=== PATIENT | female | born 1975 | race Two or more races ===

== ENCOUNTER → 2024-02-17 | Outpatient (CLI) | payer OTHER, SELFPAY ==
--- NOTE | 2024-02-17 | XR_ITS ---
Examination: PA lateral chest 2 views TECHNIQUE: Upright PA lateral chest 2 views Exam date and time: February 17, 2024 0803 hours Comparison February 10, 2018 INDICATIONS: Shortness of breath coughing beginning 3 months ago FINDINGS: Right base right middle lobe pneumonia Left lung clear Normal heart size IMPRESSION: Right middle lobe right base pneumonia
== END | disposition home or self-care (01) ==
LOC: CDIM 07:50
PROVIDERS: Referring Provider Nurse Practitioner Family; Visit Provider Nurse Practitioner Family
DX: J18.9 Pneumonia, unspecified organism (principal)
CPT/HCPCS: 71046

== ENCOUNTER → 2024-03-13 | Outpatient (CLI) | payer OTHER, SELFPAY ==
--- NOTE | 2024-03-13 | XR_ITS ---
Examination: Right knee 4 views TECHNIQUE: AP oblique lateral axial right knee 4 views Exam date and time: March 13, 2024 12:24 PM INDICATIONS: Right knee pain and swelling after injury one week ago FINDINGS: Mild narrowing medial joint space Moderate knee effusion No fracture. No patellar dislocation IMPRESSION: No fracture Moderate knee effusion, seen with internal derangement of the knee
--- NOTE | 2024-03-13 12:04 | XR_ITS ---
Examination: Duplex scan of the lower extremity, unilateral right complete Date and time of exam: March 13, 2024 1210 hours INDICATIONS: Injury to the knee one week ago followed by leg swelling and pain Technique: Duplex scan of the extremity veins using B-mode/grayscale imaging and Doppler spectral analysis and color flow Attention is directed to internal echogenicity, compression and augmentation involving these veins, color flow assessment, spectral analysis Findings: Major deep venous structures in the extremity demonstrate normal course and caliber. There is no evidence of deep vein thrombosis. Normal color flow and spectral analysis Impression: Negative for DVT..
== END | disposition home or self-care (01) ==
LOC: CDIM 11:51
PROVIDERS: PCP Physician Assistant; Referring Provider Nurse Practitioner Family; Visit Provider Nurse Practitioner Family
DX: S89.91XA Unspecified injury of right lower leg, initial encounter (principal); X58.XXXA Exposure to other specified factors, initial encounter; M25.461 Effusion, right knee; M23.91 Unspecified internal derangement of right knee
CPT/HCPCS: 73564; 93971

== ENCOUNTER → 2024-03-16 | Outpatient (CLI) | payer OTHER, SELFPAY ==
--- NOTE | 2024-03-16 08:45 | XR_ITS ---
Examination: Breast ultrasound complete, bilateral Date and time of exam: March 16, 2024 0855 hours INDICATIONS: Mammogram February 01, 2024 7 mm focal asymmetry upper outer left breast Technique: Real-time grayscale ultrasonographic imaging bilateral breasts, including all 4 quadrants as well as nipple retroareolar and axillary regions. Findings: Sonographic images right breast 8:00 cyst 4 x 4 millimeter 10:00 cyst 3 x 3 mm No solid nodules Sonographic images left breast 2:00 oval mass lobular margins 11 x 11 mm IMPRESSION: BI-RADS Category 3: Probably benign findings One additional 6 month left breast sonogram follow-up is needed to document stability of left breast 2:00 nodule described above
--- NOTE | 2024-03-16 09:45 | XR_ITS ---
Examination: Diagnostic digital mammography, unilateral, left Computer aided detection 3-D breast Tomosynthesis, unilateral Date and time of exam: March 16, 2024 0933 hours INDICATIONS: Mammogram February 01, 2024 7 mm focal asymmetry upper outer left breast Technique: Nonmagnified MLO, CC views of the left breast have been obtained, reconstructed from 3-D Tomosynthesis images. R2 computer aided detection program utilized for evaluation of suspicious masses and/or abnormal calcifications. 3-D Tomosynthesis images obtained. Findings: Scattered areas of fibroglandular density 2:00 nodule is again noted stable in appearance compared with February 01, 2024 Impression: BI-RADS category 3: Probably benign findings One additional 6 month left mammogram follow-up is needed to document stability of 2:00 nodule described above
== END | disposition home or self-care (01) ==
PROVIDERS: Referring Provider Physician Assistant; Visit Provider Physician Assistant
DX: R92.332 Mammographic heterogeneous density, left breast (principal); N63.21 Unspecified lump in the left breast, upper outer quadrant; N60.01 Solitary cyst of right breast
CPT/HCPCS: 76641; 77061; 77065; G0279

== ENCOUNTER → 2024-04-27 | Outpatient (CLI) | payer OTHER, SELFPAY ==
--- NOTE | 2024-04-27 09:30 | XR_ITS ---
Exam: MRI knee without contrast, right Date and time of exam: April 27, 2024 0926 hours INDICATIONS: Right knee pain and stiffness 2 months post injury Technique: Multiple axial, coronal, and sagittal sections on the knee have been obtained. T2-Weighted sagittal, fat-suppressed images, TR 3,500, TE 62, T2 weighted coronal fat-saturated images, TR 3,500, TE 62 Proton density sagittal sections, TR 1800, TE 31. T-1 weighted coronal images, TR 524, TE 13.0 Findings: Medial meniscus anterior horn intact. Medial meniscus, body is intact. Posterior horn medial meniscus intact. Lateral meniscus anterior horn is intact Lateral meniscus, body is intact Posterior horn lateral meniscus is intact Anterior cruciate ligament moderate sprain Posterior cruciate ligament appears intact. Knee effusion is minimal. Quadriceps and patellar tendons appear intact. There is no evidence of tendinosis. Inflammatory change or fracture of Hoffa's fat pad is not seen. Medial patellar facet demonstrates no thinning. Lateral patellar facet cartilage demonstrates no thinning. Trochlear cartilage demonstrates no thinning. Marrow signal adequate. Medial collateral ligament appears intact. No meniscocapsular separation is seen. Illiotibial band and fibular collateral ligament are intact. Biceps femoris tendons appear intact. Medial femoral condylar articular cartilage demonstrates mild thinning. Lateral femoral condylar articular cartilage demonstratesmild thinning. Tibial plateau cartilage demonstrates mild thinning. Impression: Moderate sprain anterior cruciate ligament
== END | disposition home or self-care (01) ==
LOC: SMRI 09:02
PROVIDERS: PCP Nurse Practitioner Family; Referring Provider Nurse Practitioner Family; Visit Provider Nurse Practitioner Family
DX: S83.511A Sprain of anterior cruciate ligament of right knee, initial encounter (principal); X58.XXXA Exposure to other specified factors, initial encounter
CPT/HCPCS: 73721

== ENCOUNTER 2025-03-10 12:29 | Emergency (ER) | payer BC, SELFPAY ==
[2025-03-10 12:30] VITALS: BMI 35.9
[2025-03-10 13:21] VITALS: BP 156/96; PULSE 74; RESP 18; TEMP 37.1; O2SAT 98
--- NOTE | 2025-03-10 13:30 | PD.EDRME ---
Rapid Medical Screening Exam [facility] Arrival date/time: 03/10/25 12:29 This is a 49-year-old female that comes into the emergency room with complaints of left lower abdominal pain. Patient states she has a history of diverticulitis. Patient states she has not seen her doctor for this problem. Patient did not denies fever but reports chills and nausea Patient reports ports a little bit of constipation and a little bit of diarrhea. Patient denies any vomiting. Patient denies past medical history. I have greeted and performed a focused initial assessment of this patient. Initial appropriate labs ordered at this time. A comprehensive ED assessment and evaluation of the patient and analysis of all test and completion of medical decision making process will be conducted by additional ED provider. Chief Complaint: Abdominal Pain Time Seen by Provider: 03/10/25 12:32 Vital signs: Vital Signs Temperature 98.8 F 03/10/25 13:21 Pulse Rate 74 03/10/25 13:21 Respiratory Rate 18 03/10/25 13:21 Blood Pressure 156/96 H 03/10/25 13:21 Pulse Oximetry (%) 98 03/10/25 13:21 Oxygen Delivery Method Room Air 03/10/25 13:21 Exam: Left lower quadrant pain to light palpation, alert and oriented, breathing even and unlabored. Clinical Impression: Abdominal pain
[2025-03-10 13:52] LABS: Collection Type, Urine Voided
[2025-03-10 14:00] LABS: HCG Qualitative,Urine Negative
[2025-03-10 14:03] LABS: Basophils # (Auto) 0.1 Thou/mm3 (0.0-0.2); Basophils % (Auto) 0 % (0-2.5); Eosinophils # (Auto) 0.2 Thou/mm3 (0.0-0.5); Eosinophils % (Auto) 2 % (0-10); Hematocrit 42.1 % (36.0-46.0); Hemoglobin 13.9 g/dL (12.0-16.0); Immature Granulocytes Auto 0.06 Thou/mm3 (0.00-0.00); Lymphocytes # (Auto) 2.1 Thou/mm3 (1.0-4.8); Lymphocytes % (Auto) 15 % (10-50); Mean Corpuscular HGB Conc 33.0 g/dl (31.0-37.0); Mean Corpuscular Hemoglobin 28.5 pg (25.0-35.0); Mean Corpuscular Volume 86 fL (80-100); Monocytes # (Auto) 0.8 Thou/mm3 (0.0-0.8); Monocytes % (Auto) 6 % (0-12); Neutrophils # (Auto) 11.2 Thou/mm3 (1.8-7.7); Neutrophils % (Auto) 77 % (37-80); Nucleated Red Blood Cell # 0.00 Thou/mm3 (0.00-0.00); Nucleated Red Blood Cell % 0 /100 WBC (0); Platelet Count 323 Thou/mm3 (140-440); RDW Standard Deviation 40.5 fL (36.4-46.3); Red Blood Count 4.87 Miln/mm3 (4.00-5.20); White Blood Count 14.5 Thou/mm3 (3.6-11.0)
[2025-03-10 14:03] LABS: Bilirubin,Urine Negative (Negative); Blood,Urine 1+ (Negative); Clarity,Urine Clear (Clear/Hazy); Color,Urine Lt-Yellow (Lt Yel-Yel); Culture Indicated,Urine Not Indicated; Glucose, Urine Negative (Negative); Ketones,Urine Negative (Negative); Leukocyte Esterase,Urine Negative (Negative); Nitrite,Urine Negative (Negative); PH,Urine 7.0 (5.0-7.0); Protein,Urine Negative (Neg - Trace); RBC,Urine 1 /hpf (0-3); Specific Gravity,Urine 1.014 (1.001-1.035); Squamous Epithelial Cell,Urine 1 /hpf (0-5); Urobilinogen,Urine Negative mg/dL (0.0-1.0); WBC,Urine < 1 /hpf (0-5)
[2025-03-10 14:37] LABS: Alanine Aminotransferase 38 U/L (10-49); Albumin, Serum 4.8 gm/dL (3.5-5.0); Albumin/Globulin Ratio 1.3 (1.2-2.2); Alkaline Phosphatase 99 U/L (46-116); Anion Gap 12 (7-16); Aspartate Amino Transferase 28 U/L (0-34); BUN/Creatinine Ratio 9 Ratio (12-20); Bilirubin,Total 0.4 mg/dL (0.3-1.2); Blood Urea Nitrogen 7 mg/dL (9-23); Calcium 9.1 mg/dL (8.3-10.6); Calcium (Corrected) 9.1 mg/dL (8.5-10.1); Carbon Dioxide 26.9 mMol/L (20.0-31.0); Chloride 102 mMol/L (98-107); Creatinine (Component) 0.8 mg/dL (0.6-1.3); Estimated Creatinine Clearance 84.8 mL/min (>60); Globulin 3.7 gm/dL (2.3-3.5); Glucose 83 mg/dL (74-106); Lipase 27 U/L (12-53); Osmolality,Calculated 278 (275-295); Potassium 3.8 mMol/L (3.4-5.1); Sodium 141 mMol/L (136-145); Total Protein 8.5 gm/dL (5.7-8.2); eGFR > 60 See Note
--- NOTE | 2025-03-10 16:27 | XR_ITS ---
Examination: CT abdomen with intravenous contrast CT pelvis with intravenous contrast 2-D coronal reconstructions 2-D sagittal reconstructions Date and time of exam: March 10, 2025, 1727 hours, comparison March 01, 2023 INDICATIONS: Left lower quadrant abdominal pain today, history diverticulosis. CTDI: vol (mGy) 12.6 DLP: (mGycm) 646 Technique: Multiple axial sections of the abdomen and pelvis have been obtained. 64 slice high-resolution scanner used. 3 mm axial sections have been obtained, post intravenous injection 60 cc [id number] 2-D sagittal, coronal reconstructions obtained. Low dose protocols were performed. One or more of the following dose reduction techniques were used; automated exposure control, adjustment of the mA and/or KV according to patient size, use of iterative reconstruction technique. Findings: No visualized liver or splenic lesion No gallstones No pancreatic or adrenal mass No renal or ureteral calculi, no hydronephrosis Aorta normal size Absent appendix Colonic diverticulosis Acute diverticulitis sigmoid colon for instance axial image 172 Mild free fluid in the pelvis but no definite pelvic abscess Urinary bladder intact Anteverted uterus Grade 1 anterolisthesis L4 on L5 IMPRESSION: Acute sigmoid diverticulitis, mild free fluid in the pelvis but no definite pelvic abscess
--- NOTE | 2025-03-10 16:28 | EDNOTE_ITS ---
ED Abdominal Pain RME/HPI General Chief Complaint: Abdominal Pain Stated complaint: LLQ ABD PAIN X 1 DAY; POSS. DIVERTICULITIS FLARE Time seen by provider: 03/10/25 12:32 Arrival date/time: 03/10/25 12:29 49-year-old female patient came in for evaluation regarding left lower quadrant pain. Onset of symptoms since yesterday is worsening left lower quadrant pain, described as sharp pain severity 8 out of 10. Denies any fever denies any vomiting. Denies any diarrhea or constipation. Patient is worried about possible diverticulitis flare. She had a history of diverticulitis in the past. RME / HPI RME / HPI narrative: 03/10/25 12:29 This is a 49-year-old female that comes into the emergency room with complaints of left lower abdominal pain. Patient states she has a history of diverticulitis. Patient states she has not seen her doctor for this problem. Patient did not denies fever but reports chills and nausea Patient reports ports a little bit of constipation and a little bit of diarrhea. Patient denies any vomiting. Patient denies past medical history. I have greeted and performed a focused initial assessment of this patient. Initial appropriate labs ordered at this time. A comprehensive ED assessment and evaluation of the patient and analysis of all test and completion of medical decision making process will be conducted by additional ED provider. Exam: Left lower quadrant pain to light palpation, alert and oriented, breathing even and unlabored. Impression: Abdominal pain Related Data Previous Rx's ?Medication ?Instructions ?Recorded fluconazole 150 mg tablet 150 mg PO Q3D 2 doses #2 tab s 03/01/23 hydrocodone 5 mg-acetaminophen 325 1 tab PO BID PRN pa in #10 tabs 03/01/23 mg tablet acetaminophen 325 mg tablet 650 mg (2 x 325 mg) PO QID PRN 03/10/25 (Aminofen) pain #30 tabs ciprofloxacin HCl 500 mg tablet 500 mg PO BID #14 tabs 03/10/25 (Cipro) docusate sodium 100 mg capsule 100 mg PO BID #20 caps 03/10/25 (Colace) metronidazole 500 mg tablet 500 mg PO BID 7 days #14 t abs 03/10/25 Allergies Allergy/AdvReac Type Severity Reaction Status Date / Time No Known Allergies Allergy Verified 03/10/25 12:31 Review of Systems Review of Systems Narrative Review of Systems: Review of system reviewed and within normal limits except mentioned in HPI ED Exam Narrative Physical exam: VITAL SIGNS: Reviewed. GENERAL APPEARANCE: Alert and interactive, follows commands, no acute distress, HEAD AND FACE: Non-traumatic. ENT: PERRL, pink conjunctivitis, eyelid no trauma, Mucous membrane moist. NECK: Supple, nontender, no nuchal rigidity. CHEST: No tenderness, no crepitus, no paradoxical movement, no retractions. LUNGS: Clear, well ventilated, symmetric, no rales, no wheezing, no ronchi, no stridor, good breath sounds bilaterally. HEART: Regular rate, regular rhythm, no murmur, no gallops. ABDOMEN: Soft, positive bowel sounds, nondistended, no guarding, left lower quadrant tenderness, no rebound, no masses, RECTAL: Deferred. GENITAL: Deferred. NEUROLOGICAL: Gross motor function intact sensory function intact, Appropriate for age. MUSCULOSKELETAL: low back nontender, full range of motion. EXTREMITIES: Nontender, full range of motion. SKIN: Color pink, dry, no rash, no lacerations, no abrasions, no contusions. LYMPHATICS: Deferred. Course Quality Measures none Orders Category Date Time Status CT Screening NOW Care 03/10/25 16:[address] abdomen pelvis w con Stat Exams 03/10/25 16:27 Completed CBC Stat Lab 03/10/25 13:47 Completed Comprehensive Metabolic Panel Stat Lab 03/10/25 13:47 Completed HCG Qualitative,Urine Stat Lab 03/10/25 13:43 Completed Lipase Stat Lab 03/10/25 13:47 Completed Urinalysis, C/S if Indicated Stat Lab 03/10/25 13:43 Completed Ciprofloxacin HCl [Ciprofloxacin] Med 03/10/25 18:34 Discontinued 500 mg PO X1 ONE Docusate Sod [Colace] Med 03/10/25 18:34 Discontinued 100 mg PO X1 ONE Morphine* Inj Med 03/10/25 16:28 Discontinued 4 mg IVP X1 ONE Ondansetron Inj [Zofran Inj] Med 03/10/25 16:27 Discontinued 4 mg IVP X1 ONE metroNIDAZOLE [Flagyl] Med 03/10/25 18:34 Discontinued 500 mg PO X1 ONE Vital Signs Vital signs: Vital Signs Temperature 98.8 F 03/10/25 13:21 Pulse Rate 74 03/10/25 13:21 Respiratory Rate 18 03/10/25 13:21 Blood Pressure 156/96 H 03/10/25 13:21 Pulse Oximetry (%) 98 03/10/25 13:21 Oxygen Delivery Method Room Air 03/10/25 13:21 Abdominal Pain MDM MDM Narrative MDM Narrative:: 03/10/25 12:29 49-year-old female patient came in for evaluation regarding left lower quadrant pain. Onset of symptoms since yesterday is worsening left lower quadrant pain, described as sharp pain severity 8 out of 10. Denies any fever denies any vomiting. Denies any diarrhea or constipation. Patient is worried about possible diverticulitis flare. She had a history of diverticulitis in the past. Patient CBC showed leukocytosis of 14.5 there is of the labs unremarkable. CT scan of the abdomen pelvis showed Acute sigmoid diverticulitis, mild free fluid in the pelvis but no definite pelvic abscess Patient was given morphine, Flagyl and Cipro in the emergency room. She is stable for discharge home Patient data External records reviewed:: None Clinical information provided by:: patient Social determinants that could affect healthcare access:: none Patient has the following chronic illnesses:: History of diverticulitis How is presenting disease/condition affected by chronic disease/condition?: exacerbated by Evaluation data The following diagnostics were reviewed and interpreted by me:: lab results and radiology exam(s) Lab and/or radiology exams considered but not ordered:: None Interpretation Summary: See above Medications / Prescriptions Medications or Prescriptions considered but not ordered:: None Medication administrations:: Medication Administration History Discontinued Medications Ciprofloxacin (Ciprofloxacin Hcl 250 Mg Tablet) 500 mg PO X1 ONE Stop: 03/10/25 18:35 Last Admin: 03/10/25 19:03 Dose: 500 mg Documented By: ARETHA Docusate Sodium (Docusate Sod 100 Mg Capsule) 100 mg PO X1 ONE; Protocol Stop: 03/10/25 18:35 Last Admin: 03/10/25 19:03 Dose: 100 mg Documented By: ARETHA Metronidazole (Metronidazole 250 Mg Tablet) 500 mg PO X1 ONE Stop: 03/10/25 18:35 Last Admin: 03/10/25 19:03 Dose: 500 mg Documented By: ARETHA Morphine Sulfate (Morphine Sulf Inj 4 Mg/Ml Vial) 4 mg IVP X1 ONE Stop: 03/10/25 16:29 Last Admin: 03/10/25 18:01 Dose: 4 mg Documented By: EF Ondansetron HCl (Ondansetron Inj 2 Mg/Ml Inj 2 Ml) 4 mg IVP X1 ONE; Protocol Stop: 03/10/25 16:28 Last Admin: 03/10/25 18:01 Dose: 4 mg Documented By: DIANA See above Consultations Consultation(s) initiated? (list below): No Diagnosis Differential diagnosis abdominal pain: abdominal pain, constipation and diverticulitis Most likely diagnosis given after review of the tests above:: Diverticulitis Admission Indicated Admission indicated?: not indicated Admission Request Was there a request for admission?: No Disposition Plan Disposition Plan: Discharge Discharge Attestation Discharge Attestation: The patient was given an opportunity to ask questions and understood the dis charge instructions. Discharge instructions specifically effects, indications for sooner follow up or return to the emergency department, and the expected course of current diagnosis. Patient condition: Stable Discharge Plan Plan Patient Disposition: HOME (Self Care) Discharge Disposition comment: Stable Prescriptions/Referrals Prescriptions/Med Rec: New docusate sodium [Colace] 100 mg capsule 100 mg PO BID Qty: 20 0RF ciprofloxacin HCl [Cipro] 500 mg tablet 500 mg PO BID Qty: 14 0RF metronidazole 500 mg tablet 500 mg PO BID 7 Days Qty: 14 0RF acetaminophen [Aminofen] 325 mg tablet 650 mg PO QID PRN (Reason: pain) Qty: 30 0RF No Action hydrocodone-acetaminophen 5-325 mg tablet 1 tab PO BID MDD 10 PRN (Reason: pain) Qty: 10 0RF fluconazole 150 mg tablet 150 mg PO Q3D Qty: 2 0RF Referrals: Len Dye PA-C [Primary Care Provider] - In 1 week Problem List Clinical Impression: Diverticulitis Patient/Caregiver Discharge Instructions Discharge Activity: activity as tolerated Education Materials: ED Diverticulitis Additional Instructions: Thank you for the opportunity for serving you today. You are stable for discharged . You are advised to: Follow-up with your PCP in 1 to 2 days Return to ED for worsening of symptoms Increase oral fluids Take medication as prescribed Print Language: Pakistani Stand Alone Forms: Denise Award Info., Patient Portal Info Letter
[2025-03-10 17:57] VITALS: BP 138/81; PULSE 73; RESP 16; O2SAT 97
[2025-03-10] MEDS: ONDANSETRON INJ 2 MG/ML INJ 2 ML 4 MG IVP (18:01)
[2025-03-10] MEDS: MORPHINE SULF INJ 4 MG/ML VIAL IVP (18:01)
[2025-03-10 18:30] VITALS: BP 156/90; PULSE 73; RESP 18; TEMP 36.4; O2SAT 97
[2025-03-10] MEDS: CIPROFLOXACIN HCL 250 MG TABLET 500 MG PO (19:03)
[2025-03-10] MEDS: DOCUSATE SOD 100 MG CAPSULE PO (19:03)
[2025-03-10 19:05] VITALS: BP 156/60; PULSE 95; RESP 18; O2SAT 98
== END 2025-03-10 19:08 | disposition home or self-care (01) ==
PROVIDERS: Nurse Practitioner Family; Emergency Provider Emergency Medicine; PCP Physician Assistant
DX: K57.32 Diverticulitis of large intestine without perforation or abscess without bleeding (principal)
CPT/HCPCS: 36415; 74177; 80053; 81001; 81025; 83690; 85025; 96374; 96375; 99283; A4649; J2270; J2405; Q9967; A9270